=== PATIENT | male | born 1955 | race Caucasian/White ===

== ENCOUNTER 2016-12-28 09:05 | Day surgery (SDC) | payer OTHER ==
[~2016-12-28] VITALS: Ht 167.6 cm; Wt 75.8 kg
[2016-12-28 09:44] VITALS: Ht 167.6 cm; Wt 75.8 kg
[2016-12-28] MEDS ORDERED: ASPI81TA3 PO (09:48)
[2016-12-28] MEDS ORDERED: MIDAZOLAM 1 MG/ML 2 ML INJ ONE (10:28)
[2016-12-28] MEDS ORDERED: FENTAnyl 50 MCG/ML VIAL ONE (10:28)
--- NOTE | 2016-12-28 10:34 | OPPN ---
Date/Time of Note Date/Time of Note DATE: 12/28/16 TIME: 10:33 Operative Report Preoperative Diagnosis Screening Postoperative Diagnosis Diverticulosis of the colon Internal hemorrhoids No colon neoplasm was identified Operation/Procedure Performed Colonoscopy Surgeon see signature line program support assistant None Anesthesia: moderate sedation Estimated blood loss: none Transfusion Required none Specimen None Grafts/Implants none Complications none GOLDEN BROWN MD Dec 28, 2016 10:34
[2016-12-28 10:45] VITALS: BP 151/96; RESP 14
--- NOTE | 2016-12-28 20:51 | GILP ---
DATE OF PROCEDURE: 12/28/2016 NAME OF PROCEDURE: Colonoscopy. SURGEON: Golden Mayen MD PREOPERATIVE DIAGNOSIS: Screening colonoscopy. POSTOPERATIVE DIAGNOSES: 1. Diverticulosis of the colon. 2. Internal hemorrhoids. 3. No colon neoplasm was identified. INDICATION FOR THE PROCEDURE: The patient is a 61-year-old male patient who was scheduled for scree arvin colonoscopy. The procedure and possible complications are well explained to the patient. The patient understood and consented to the procedure. DESCRIPTION OF PROCEDURE: Under the influence of fentanyl and Versed, the colonoscope was carefully introduced in the rectum and under direct vision, it was advanced all the way to the cecum. FINDINGS: The patient had diverticulosis of the colon. He also had internal hemorrhoids. No colon neoplasm was identified. The patient tolerated the procedure very well and there was no complication from the procedure. At the end of the procedure, he was awake with stable vital signs and he was discharged home to the car e of his family. IMPRESSION: Please see postoperative diagnosis. PLAN: 1. High fiber diet. 2. Next screening colonoscopy in 10 years. Dictated By: GOLDEN MEANS/SHAAN Conf#: [id number] DID#: [id number]
== END 2016-12-28 11:39 | disposition home or self-care (01) ==
LOC: GIL 09:05
PROVIDERS: ATTEND Internal Medicine Gastroenterology
DX: Z12.11 Encounter for screening for malignant neoplasm of colon (principal); K57.90 Diverticulosis of intestine, part unspecified, without perforation or abscess without bleeding; K64.8 Other hemorrhoids
CPT/HCPCS: 45378; J2250; J3010